=== PATIENT | male | born 1960 | race Caucasian/White ===

== ENCOUNTER 2021-05-24 04:45 | Day surgery (SDC) | payer BC ==
[2021-05-24 09:23] VITALS: TEMP 97.6
[2021-05-24 10:39] VITALS: BP 117/77; PULSE 47
== END 2021-05-24 10:40 | disposition home or self-care (01) ==
LOC: JASU-ENDO 04:45
PROVIDERS: ATTEND Internal Medicine Gastroenterology
PROC: 0DBL8ZX Excision of Transverse Colon, Via Natural or Artificial Opening Endoscopic, Diagnostic (ICD-10-PCS; principal; 2021-05-24 08:40)
DX: Z51.11 Encounter for antineoplastic chemotherapy (principal); D12.3 Benign neoplasm of transverse colon; K64.8 Other hemorrhoids; K57.30 Diverticulosis of large intestine without perforation or abscess without bleeding
CPT/HCPCS: 88305-TC